=== PATIENT | male | born 1980 | race Two or more races ===

== ENCOUNTER 2018-08-19 19:39 | Inpatient (IN) | payer OTHER ==
[~2018-08-19] VITALS: Ht 185.4 cm; Wt 127.9 kg
[~2018-08-19 19:39] MED LIST: NKM
[2018-08-19 20:30] VITALS: BP 139/85
[2018-08-19] MEDS ORDERED: HYDROcodone/Acetamin 10/325 tab ORAL PRN (21:15)
[2018-08-19 21:49] LABS: BASOPHILS % (AUTO) 0.7 % (0.0-2.0); EOSINOPHILS % (AUTO) 0.3 % (0.0-3.0); HEMATOCRIT 46.7 % (42.0-52.0); HEMOGLOBIN 16.6 G/DL (14.2-18.0); LYMPHOCYTES % (AUTO) 12.3 % (20.0-45.0); MEAN CORPUSCULAR VOLUME 90 FL (80-99); MONOCYTES % (AUTO) 2.8 % (1.0-10.0); NEUTROPHILS % (AUTO) 83.8 % (45.0-75.0); PLATELET COUNT 344 K/UL (150-450); RED BLOOD COUNT 5.16 M/UL (4.70-6.10); RED CELL DISTRIBUTION WIDTH 9.8 % (11.6-14.8); WHITE BLOOD COUNT 12.4 K/UL (4.8-10.8)
[2018-08-19 22:10] LABS: ANION GAP 10 mmol/L (5-15); BLOOD UREA NITROGEN 17 mg/dL (7-18); CALCIUM 9.3 MG/DL (8.5-10.1); CARBON DIOXIDE 26 MMOL/L (21-32); CHLORIDE 104 MMOL/L (98-107); CREATININE 1.1 MG/DL (0.55-1.30); POTASSIUM 3.8 MMOL/L (3.5-5.1); SODIUM 139 MMOL/L (136-145)
[2018-08-19 22:17] LABS: ALANINE AMINOTRANSFERASE 87 U/L (12-78); ALBUMIN 4.1 G/DL (3.4-5.0); ALBUMIN/GLOBULIN RATIO 0.9 (1.0-2.7); ALKALINE PHOSPHATASE 94 U/L (46-116); ASPARTATE AMINO TRANSFERASE 36 U/L (15-37); BILIRUBIN,TOTAL 0.6 MG/DL (0.2-1.0)
[2018-08-20 00:35] VITALS: BP 133/75
[2018-08-20] MEDS ORDERED: PERCOCET 5-3251 EACH ORAL (01:39)
[2018-08-20] MEDS ORDERED: IBUPROFEN600 MG ORAL (01:39)
[2018-08-20 04:00] VITALS: BP 123/79
[2018-08-20] MEDS: NovoLOG Insulin Flexpen SUBQ SCH ×4 (06:18→20:54)
[2018-08-20 08:35] VITALS: BP 140/91
[2018-08-20] MEDS ORDERED: Dexamethasone 4mg/ml vial ONE (09:01)
[2018-08-20] MEDS ORDERED: Lidocaine 1% MPF 10mg/ml 5ml ONE (09:01)
[2018-08-20] MEDS ORDERED: fentaNYL 100 mcg/2 mL IV ONE (09:01)
[2018-08-20] MEDS ORDERED: Sodium Chloride 10ml vial INJ ONE (09:01)
[2018-08-20] MEDS ORDERED: Propofol 200mg/20ml IV ONE ×2 (09:01→09:08)
[2018-08-20] MEDS ORDERED: Lidocaine 1% Plain 30 ml INJ ONE (09:08)
--- NOTE | 2018-08-20 10:33 | Diagnostic Imaging Report ---
EXAM: Magnetic Resonance Imaging of the lumbar spine HISTORY: 38-year-old male with back pain COMPARISON: CT Lumbar spine 08/19/18 TECHNIQUE: The following sequences were obtained: Sagittal T1, sagittal T2, sagittal STIR, axial T2, axial T1 FINDINGS: The distal thoracic spinal cord and conus medullaris are normal in size, shape and signal intensity, the conus medullaris terminates at the T12-L1 level. No acute vertebral body fracture. Diffuse disc desiccation is seen at L3- L4 and L4-L5. Nonspecific edema seen in the posterior subcutaneous tissues without arise fluid collection. L1-L2: Normal spinal canal and neural foramina. L2-L3: A 1 mm diffuse is bulging seen with facet arthropathy causing mild spinal canal stenosis. Mild bilateral neural from stenosis is seen. L3-L4: There is a 2-3 mm diffuse disc bulge, right greater than left, with facet arthropathy this causes moderate to severe right neural foraminal stenosis. The left neural foramina is normal. The spinal canal is normal. The bulge abuts the traversing right L4 nerve root. L4-L5: There is a 2-3 mm diffuse disc bulge with facet arthropathy. The spinal canal is normal. Mild bilateral neural foraminal stenosis is seen. L5-S1: Facet arthropathy with normal spinal canal and neural foramina. IMPRESSION: 1. L2-L3: A 1 mm diffuse is bulging seen with facet arthropathy causing mild spinal canal stenosis. Mild bilateral neural from stenosis is seen. 2. L3-L4: There is a 2-3 mm diffuse disc bulge, right greater than left, with facet arthropathy this causes moderate to severe right neural foraminal stenosis. The left neural foramina is normal. The spinal canal is normal. The bulge abuts the traversing right L4 nerve root. 3. L4-L5: There is a 2-3 mm diffuse disc bulge with facet arthropathy. The spinal canal is normal. Mild bilateral neural foraminal stenosis is seen.
[2018-08-20 11:25] LABS: APPEARANCE,URINE CLEAR; BILIRUBIN, URINE NEGATIVE (NEGATIVE); COLOR,URINE PALE YELLOW; GLUCOSE, URINE (UA) NEGATIVE (NEGATIVE); KETONES,URINE NEGATIVE (NEGATIVE); LEUKOCYTE ESTERASE ,URINE NEGATIVE (NEGATIVE); NITRITE,URINE NEGATIVE (NEGATIVE); PH,URINE 6 (4.5-8.0); PROTEIN,URINE NEGATIVE (NEGATIVE); UROBILINOGEN,URINE NORMAL MG/DL (0.0-1.0)
[2018-08-20 12:00] VITALS: BP 110/71
--- NOTE | 2018-08-20 12:17 | General Progress Note ---
Progress Note Progress Note Neurosurgery Follow-up S/ Lower back pain somewhat improved by IV pain medications. Patient able to ambulate to bathroom. Strength in lower extremities better. O/ VS: Last 24 Hour Vital Signs Date Time Temp Pulse Resp B/P (MAP) Pulse Ox O2 Delivery O2 Flow Rate FiO2 08/20/18 09:00 Room Air 08/20/18 08:35 98.2 72 16 140/91 (107) 97 08/20/18 04:13 97.2 08/20/18 04:00 97.7 64 19 123/79 (94) 95 08/20/18 00:35 97.2 66 19 133/75 (94) 96 08/19/18 21:00 Room Air 08/19/18 20:30 97.0 80 19 139/85 (103) 98 Alert and oriented. Patient's family at bedside Upper extyremity 5/5 Lower extremity improved after pain control, distally 5/5. Continues to have moderate to sever low back pain on SLR testing with tingling in the lower extremities. Labs: Laboratory Tests Test 08/19/18 21:35 08/20/18 10:00 White Blood Count 12.4 K/UL (4.8-10.8) H Red Blood Count 5.16 M/UL (4.70-6.10) Hemoglobin 16.6 G/DL (14.2-18.0) Hematocrit 46.7 % (42.0-52.0) Mean Corpuscular Volume 90 FL (80-99) Mean Corpuscular Hemoglobin 32.2 PG (27.0-31.0) H Mean Corpuscular Hemoglobin Concent 35.6 G/DL (32.0-36.0) Red Cell Distribution Width 9.8 % (11.6-14.8) L Platelet Count 344 K/UL (150-450) Mean Platelet Volume 6.5 FL (6.5-10.1) Neutrophils (%) (Auto) 83.8 % (45.0-75.0) H Lymphocytes (%) (Auto) 12.3 % (20.0-45.0) L Monocytes (%) (Auto) 2.8 % (1.0-10.0) Eosinophils (%) (Auto) 0.3 % (0.0-3.0) Basophils (%) (Auto) 0.7 % (0.0-2.0) Prothrombin Time 10.9 SEC (9.30-11.50) Prothromb Time International Ratio 1.0 (0.9-1.1) Activated Partial Thromboplast Time 27 SEC (23-33) Sodium Level 139 MMOL/L (136-145) Potassium Level 3.8 MMOL/L (3.5-5.1) Chloride Level 104 MMOL/L (98-107) Carbon Dioxide Level 26 MMOL/L (21-32) Anion Gap 10 mmol/L (5-15) Blood Urea Nitrogen 17 mg/dL (7-18) Creatinine 1.1 MG/DL (0.55-1.30) Estimat Glomerular Filtration Rate > 60 mL/min (>60) Glucose Level 184 MG/DL (74-106) H Hemoglobin A1c 6.8 % (4.3-6.0) H Calcium Level 9.3 MG/DL (8.5-10.1) Total Bilirubin 0.6 MG/DL (0.2-1.0) Aspartate Amino Transf (AST/SGOT) 36 U/L (15-37) Alanine Aminotransferase (ALT/SGPT) 87 U/L (12-78) H Alkaline Phosphatase 94 U/L (46-116) Total Protein 8.5 G/DL (6.4-8.2) H Albumin 4.1 G/DL (3.4-5.0) Globulin 4.4 g/dL Albumin/Globulin Ratio 0.9 (1.0-2.7) L Urine Color Pale yellow Urine Appearance Clear Urine pH 6 (4.5-8.0) Urine Specific Gray 1.015 (1.005-1.035) Urine Protein Negative (NEGATIVE) Urine Glucose (UA) Negative (NEGATIVE) Urine Ketones Negative (NEGATIVE) Urine Blood Negative (NEGATIVE) Urine Nitrite Negative (NEGATIVE) Urine Bilirubin Negative (NEGATIVE) Urine Urobilinogen Normal MG/DL (0.0-1.0) Urine Leukocyte Esterase Negative (NEGATIVE) Urine RBC 0 /HPF (0 - 0) Urine WBC 0 /HPF (0 - 0) Urine Squamous Epithelial Cells None /LPF (NONE/OCC) Urine Bacteria None /HPF (NONE) MRI report: IMPRESSION: 1. L2-L3: A 1 mm diffuse is bulging seen with facet arthropathy causing mild spinal canal stenosis. Mild bilateral neural from stenosis is seen. 2. L3-L4: There is a 2-3 mm diffuse disc bulge, right greater than left, with facet arthropathy this causes moderate to severe right neural foraminal stenosis. The left neural foramina is normal. The spinal canal is normal. The bulge abuts the traversing right L4 nerve root. 3. L4-L5: There is a 2-3 mm diffuse disc bulge with facet arthropathy. The spinal canal is normal. Mild bilateral neural foraminal stenosis is seen. I reviewed the CT of the lumbar spine dated 08-19-18. This study does not reveal any acute fracture dislocations. Posterior disc protrusions at L3-4 and L4-5 without severe central canal compromise. Mild facet arthropathy at the L45 and L5-S1 levels. I reviewed the MRI of the lumbar spine, dated 08-20-18. This study is significant for posterrio disc herniations at L3-4 and L4-5 levels, with severe right and moderate to severe left foraminal compromise. No evidence of epidural hematoma. Dx Impression: Acute flare up of chronic post-traumatic low back pain Interval improvement in the lower extremity function with pain control P/ PT Lumbar brace pain medications follow-up with internal medicine Bariatric surgery follow-up for gastric diversion/sleeve follow-up in neurospine clinic Ora Evans MD Aug 20, 2018 12:17
[2018-08-20 16:00] VITALS: BP 116/74
[2018-08-20 20:00] VITALS: BP 110/73
[2018-08-21] VITALS: BP 118/72
[2018-08-21 04:00] VITALS: BP 132/81
[2018-08-21] MEDS: NovoLOG Insulin Flexpen SUBQ SCH ×3 (06:04→16:41)
[2018-08-21 08:00] VITALS: BP 124/74
[2018-08-21 09:32] VITALS: BP 124/74
[2018-08-21 12:00] VITALS: BP 131/60
[2018-08-21 16:00] VITALS: BP 126/76
[2018-08-21] MEDS ORDERED: PERCOCET 10-321 EACH ORAL (18:10)
[2018-08-21] MEDS ORDERED: TRAMADOL HCL150 MG ORAL (18:16)
[2018-08-21] MEDS ORDERED: LIDODERM700 M1 TOPIC (18:17)
[2018-08-21] MEDS ORDERED: CYCLOBENZAPRINE10 MG ORAL (18:18)
--- NOTE | 2018-08-23 08:09 | Discharge Summary ---
Discharge Summary Discharge Summary _ DATE OF ADMISSION: 08/19/2018 DATE OF DISCHARGE: 08/22/2018 DISCHARGED BY: Dr. Oh REASON FOR ADMISSION: 38 years old male, with PMH of diabetes, morbid obesity, s/p traumatic back injury , admitted directly from [facility] with complaints of lower back pain radiating down his lower extremities. Laboratory workup was unremarkable, except mild leukocytosis. Patient was afebrile. Patient was transferred to [facility] for further management CONSULTANTS: neurosurgery dr. Evans HOSPITAL COURSE: Patient admitted to medical surgical floor. CT lumbar spine without IV contrast FROM 08/19 did not reveal any acute fracture or dislocation. It showed posterior disc protrusion at L3-4 and L4-5 without severe central canal compromise. Mild facet atrophy at the L4-5 and L5-S1 levels. Neurosurgeon and internal medicine closely follow. Pain management was provided. Patient received a dose of IV Decadron. Bowel regimen instituted, Blood sugar was managed with sliding scale of insulin. Patient continued to have moderate to severe low back pain on straight leg raising testing with the tingling in the lower extremities. Lumbar MRI was done and carefully reviewed by neurosurgeon. No acute vertebral body fracture. IMPRESSIONS: 1. L2-L3: A 1 mm diffuse is bulging seen with facet arthropathy causing mild spinal canal stenosis. Mild bilateral neural from stenosis seen. 2. L3-L4: 2-3 mm diffuse disc bulge, right greater than left, with facet arthropathy this causes moderate to severe right neural foraminal stenosis. The left neural foramina normal. The spinal canal normal. The bulge abuts the traversing right L4 nerve root. 3. L4-L5: 2-3 mm diffuse disc bulge with facet arthropathy. The spinal canal is normal. Mild bilateral neural foraminal stenosis is seen. To summarize, MRI of lumbar spine was significant for posterior disc herniation and L3-4 and L4-5 with severe right and moderate to severe left foraminal compromise, but no evidence of epidural hematoma. Patient was working with physical therapist. Fall precautions maintained. Lumbar brace was applied. Pain management was further addressed with multiple modalities of analgesics. Patient showed interval improvement in lower extremity function with pain control . Patient to follow-up with the bariatric surgery for gastric sleeve. Patient to follow-up with the neuro spine surgeon in the clinic. Patient was cleared for discharge FINAL DIAGNOSES: -Acute flare up of chronic posttraumatic low back pain -L3-L4 and L4-L5 disc herniation with severe right and moderate to severe left foraminal compromise. -Morbid obesity DISCHARGE MEDICATIONS: See Medication Reconciliation list. DISCHARGE INSTRUCTIONS: Patient was discharged home. Follow-up with neuro spine surgeon at clinic. Follow-up with bariatric surgery. Wear lumbar brace as directed. I have been assigned to dictate discharge summary for this account. I was not involved in the patient's management. Otilia Mota NP Aug 23, 2018 08:09
--- NOTE | 2018-08-23 14:58 | Cardiology Report ---
APPROVED REPORT EKG Measurement Heart [id number] CT [id number] Sinus rhythm with short CT Otherwise normal ECG
== END 2018-08-21 18:30 | disposition home or self-care (01) | DRG 552 ==
LOC: EDUNIT# → 3E 19:39
DX: M51.26 Other intervertebral disc displacement, lumbar region (principal); M48.061 Spinal stenosis, lumbar region without neurogenic claudication; E11.9 Type 2 diabetes mellitus without complications; E66.01 Morbid (severe) obesity due to excess calories; Z68.37 Body mass index [BMI] 37.0-37.9, adult
CPT/HCPCS: 36415; 71045; 72131; 72148; 80053; 81001; 82962; 83036; 85025; 85610; 85730; 93005; J1815; J2405